=== PATIENT | female | born 1955 | race Caucasian/White ===

== ENCOUNTER 2022-05-02 08:23 | Emergency (ER) | payer MEDICARE, SELFPAY ==
[2022-05-02 08:35] VITALS: BP 129/71; PULSE 61; RESP 20; TEMP 36.4; O2SAT 98; BMI 27.6
--- NOTE | 2022-05-02 08:56 | ED_ITS ---
HPI - General Adult General Time Seen by Provider: 08:57 Date Seen: 05/02/22 Chief complaint: Headache/Migraine Stated complaint: Migraine Time Seen by Provider: 05/02/22 08:25 Source: patient Mode of arrival: ambulatory Limitations: no limitations History of Present Illness HPI narrative: Patient is a very pleasant 66 year white female from [place] presents with her with a migraine headache. She has been long suffering migraine her, has had these since she has been young in her teenage years. No trauma no injury, no thunderclap nature, she has had a headache for few days. Started slowly and insidiously and build up she took some Triptan and it seemed to help, but then she had recurrence. She has had no fever, chills, COVID, influenza symptoms. No nuchal rigidity, no thunderclap nature headache. Headache feels like a normal migraine to her. No neurologic changes, no facial asymmetry. Related Data Allergies Allergy/AdvReac Type Severity Reaction Status Date / Time No Known Drug Allergies Allergy Verified 05/02/22 08:34 Review of Systems Status of ROS: Reports: 6 or more systems reviewed and unremarkable except as noted in History and below [facility] Social History Smoking Status: Never smoker Do you use any of these nicotine containing products: None Second hand tobacco smoke exposure: No How often do you have a drink containing alcohol: 2-3 times a week How many standard drinks containing alcohol do you have on a typical day: 1 or 2 How often do you have six or more drinks on one occasion: Never AUDIT-C Alcohol total score: 3 Non-prescribed substance use: denies use service: No Exam Narrative: Exam Narrative: Objective: Patient appears in no marked distress, noncyanotic, vital signs unremarkable HEENT is shows no facial asymmetry pupils react to light extra extraocular movements intact Neck is supple Neurologic in upper lower extremities unremarkable, moving all extremities, ambulatory Const: Vital Signs, click to edit/add: Vital Signs - 24 hr 05/02/22 08:35 Temperature 97.5 F L Pulse Rate [Pulse Oximeter] 61 Respiratory Rate 20 Blood Pressure [Ri ght Upper Arm] 129/71 Pulse Oximetry 98 Oxygen Delivery Me thod Room Air Course Vital Signs Vital signs: Initial Vital Signs Temperature 97.5 F L 05/02/22 08:35 Temperature Source Temporal Artery Scan 05/02/22 08:35 Pulse Rate 61 05/02/22 08:35 Pulse Rhythm 05/02/22 08:35 Respiratory Rate 20 05/02/22 08:35 Blood Pressure 129/71 05/02/22 08:35 Blood Pressure Mean 90 05/02/22 08:35 Blood Pressure Position Supine 05/02/22 08:35 Pulse Oximetry 98 05/02/22 08:35 Oxygen Delivery Method 05/02/22 08:35 Vital Signs Temperature 97.5 F L 05/02/22 08:35 Pulse Rate 61 05/02/22 08:35 Respiratory Rate 20 05/02/22 08:35 Blood Pressure 129/71 05/02/22 08:35 Pulse Oximetry 98 05/02/22 08:35 Oxygen Delivery Method 05/02/22 08:35 Temperature 97.5 F L 05/02/22 08:35 Pulse Rate 61 05/02/22 08:35 Respiratory Rate 20 05/02/22 08:35 Blood Pressure 129/71 05/02/22 08:35 Pulse Oximetry 98 05/02/22 08:35 Oxygen Delivery Method 05/02/22 08:35 Medical Decision Making MDM Narrative Medical decision making narrative: Patient has a longstanding history of migraines and has a typical migraine for her. She has had these last several days in the past. She typically eats gets better with dark room, sleep. Those methods of not been helping her currently. She has no symptoms of more ominous illness such as subarachnoid hemorrhage given her lack of thunderclap headache and her persistent consistent symptoms with her migraine. I think treating her with IV fluid and migraine cocktail would be appropriate. She has no allergies to medications. Should go home and rest her is here to drive her, and should return if there is concerns or recurrence. Discharge Plan Discharge Clinical Impression: Migraine Patient Disposition: Home w/ Parent or Adult Condition: Improved Instructions: Migraine Headache (ED) Additional Instructions: Rest, sleep, light activity, resume usual medications tomorrow. Do not use any more headache medicine today. Update primary care doctor in the next couple of days, return to ED sooner problems or concerns. Activity Level: Light activity Discharge Diet: Regular Stand Alone Forms: [employer] Info Instructions
[2022-05-02] MEDS: 0.9 % SODIUM CHLORIDE 1000 ml 1,000 ML 6000 ML IV (09:25)
[2022-05-02] MEDS: diphenhydrAMINE 50 MG/ML inj 25 MG IVP (09:28)
[2022-05-02] MEDS: KETOROLAC 30 MG/ML inj 15 MG IVP (09:30)
[2022-05-02] MEDS: METHYLPREDNISOLONE SOD SUCC 40 MG/ML IVP (09:32)
[2022-05-02] MEDS: METOCLOPRAMIDE HCL 10 MG in 0.9 % SODIUM CHLORIDE 100 ml 100 ML 306 MG IV (10:13)
--- NOTE | 2022-05-02 11:04 | ED.NURSE ---
given Morphine 2mg ivp now for pain rated at 6/10 scale. dcd saline lock and asking pharmacy about rizatriptane medication if ok to take that is patient's medication.
== END 2022-05-02 11:17 | disposition home or self-care (01) ==
PROVIDERS: Emergency Provider Family Medicine
DX: G43.909 Migraine, unspecified, not intractable, without status migrainosus (principal)
CPT/HCPCS: 96374; 96375; 99283; 99284; J1200; J1885; J2765; J2920; J7030

== ENCOUNTER 2022-05-20 10:30 | Emergency (ER) | payer MEDICARE, SELFPAY ==
[2022-05-20 10:33] VITALS: BP 146/68; PULSE 63; RESP 20; TEMP 36.2; O2SAT 97; BMI 27.6
--- NOTE | 2022-05-20 10:59 | ED_ITS ---
HPI - Headache General Time Seen by Provider: 10:59 Date Seen: 05/20/22 Chief Complaint: Headache/Migraine Stated Complaint: Migraine Time Seen by Provider: 05/20/22 10:59 Source: patient, family, RN notes reviewed and old records reviewed Mode of arrival: ambulatory Limitations: no limitations History of Present Illness HPI Narrative: Chica is a very pleasant 66-year-old female with a history migraines who comes to the emergency room for migraine. Initially she had presented to urgent care but according to notes sent directly here to the ER as they were unable to do ?narcotics?. This per nursing note. Chica states that approximately 3 days ago she had the onset of a migraine headache typical for her. She states she took a Triptan and the pain went away for a few hours but unfortunately then returned. Since then it has been gradually building and is now associated with photophobia and vomiting. She has not had any diarrhea or fever. She denies any recent head trauma. Typically when she feels a small pain in her head she will drink some coffee and this will abort the headache. Unfortunately this is her 2nd migraine within a number of weeks. She states that this is typical for her with holiday stress. She denies a sore throat or runny nose or recent illness. This was gradual in onset. She states that this time she is presenting in 3 days rather than 6 days as she had previously. Related Data Home Medications Medication Instructions Recorded Confirmed No Known Home Medications 05/20/22 05/20/22 Allergies Allergy/AdvReac Type Severity Reaction Status Date / Time No Known Drug Allergies Allergy Verified 05/02/22 08:34 Review of Systems Status of ROS: Reports: 10 or more systems reviewed and unremarkable except as noted in History and below Const: Denies: fever or chills Eyes: Denies: change in vision or floaters ENMT: Denies: throat pain or neck pain Cardio: Reports: palpitations (Occasionally); Denies: chest pain or shortness of breath with exertion Resp: Denies: shortness of breath or cough GI: Reports: nausea and vomiting; Denies: abdominal pain or diarrhea Musculo: Denies: neck pain Neuro: Reports: headache; Denies: numbness in extremities PFSH PFSH Social History Smoking Status: Never smoker Do you use any of these nicotine containing products: None Second hand tobacco smoke exposure: No How often do you have a drink containing alcohol: 2-3 times a week How many standard drinks containing alcohol do you have on a typical day: 1 or 2 How often do you have six or more drinks on one occasion: Never AUDIT-C Alcohol total score: 3 Non-prescribed substance use: denies use service: No Exam Narrative: Exam Narrative: Chica is a very pleasant 66-year-old female. She is not in any acute distress but clearly uncomfortable and prefers a darkened room. She is currently in room 7 with her who is very loving and supportive. Her EOM is full. Her pupils are equal and do react. Head is atraumatic. Neck is supple. Range of motion is full. Heart with regular rate and rhythm and lungs are clear in all lung joshi. Moving all extremities able to sit up in bed without assistance. 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 If she has continuing pain we will use Toradol. I do see that she had been given morphine previously and this is not typically part of migraine treatment and the plan would be not to use narcotics today. Reevaluation(s) Reevaluation #1: Patient has had complete resolution of headache after Reglan and Benadryl and fluid infusion. Vital Signs Vital signs: Initial Vital Signs Temperature 97.2 F L 05/20/22 10:33 Temperature Source Temporal Artery Scan 05/20/22 10:33 Pulse Rate 63 05/20/22 10:33 Respiratory Rate 20 05/20/22 10:33 Blood Pressure 146/68 H 05/20/22 10:33 Blood Pressure Mean 94 05/20/22 10:33 Blood Pressure Position Sitting 05/20/22 10:33 Pulse Oximetry 97 05/20/22 10:33 Oxygen Delivery Method 05/20/22 10:33 Vital Signs Temperature 97.2 F L 05/20/22 10:33 Pulse Rate 63 05/20/22 10:33 Respiratory Rate 20 05/20/22 10:33 Blood Pressure 146/68 H 05/20/22 10:33 Pulse Oximetry 97 05/20/22 10:33 Oxygen Delivery Method 05/20/22 10:33 Temperature 97.2 F L 05/20/22 10:33 Pulse Rate 63 05/20/22 10:33 Respiratory Rate 20 05/20/22 10:33 Blood Pressure 146/68 H 05/20/22 10:33 Pulse Oximetry 97 05/20/22 10:33 Oxygen Delivery Method 05/20/22 10:33 MDM - Headache MDM Narrative Medical decision making narrative: 1. Migraine-patient is discharged home. She did not receive an NSAID today but she may want to take that when she gets to prevent any further headache. Fortunately, she has had complete resolution of her symptoms. Push fluids and return as needed for worsening pain. 2. Disposition-home with her . Medical Records Attestation: I reviewed the patient's medical records. Discharge Plan Discharge Clinical Impression: Migraine Patient Disposition: Home, Self-Care Condition: Improved Additional Instructions: Recommend rest and pushing fluids today. Return as needed for worsening symptoms. Prescriptions: No Action No Known Home Medications Follow Up/Referrals: Provider,Not a Local [Primary Care Provider] - Stand Alone Forms: [employer] Info Instructions
[2022-05-20] MEDS: diphenhydrAMINE 50 MG/ML inj IVP (11:25)
[2022-05-20] MEDS: 0.9 % SODIUM CHLORIDE 1000 ml 1,000 ML IV (11:25)
[2022-05-20 11:36] VITALS: PULSE 71; O2SAT 98
[2022-05-20] MEDS: METOCLOPRAMIDE HCL 10 MG in 0.9 % SODIUM CHLORIDE 100 ml 100 ML 306 MG IVPB (11:47)
[2022-05-20 12:51] VITALS: BP 146/68; PULSE 63; RESP 20; TEMP 36.2
== END 2022-05-20 12:50 | disposition home or self-care (01) ==
PROVIDERS: Emergency Provider Family Medicine
DX: G43.909 Migraine, unspecified, not intractable, without status migrainosus (principal)
CPT/HCPCS: 94761; 96365; 96375; 99283; 99284; J1200; J2765; J7030

== ENCOUNTER 2022-07-06 08:56 | Emergency (ER) | payer MEDICARE, SELFPAY ==
[2022-07-06 09:10] VITALS: BP 134/71; PULSE 73; RESP 18; TEMP 36; O2SAT 95; BMI 26.0
--- NOTE | 2022-07-06 09:20 | CRLHL7_ITS ---
For Patients: As a result of the Century Cures Act, medical imaging exams and procedure reports are released immediately into your electronic medical record. You may view this report before your referring provider. If you have questions, please contact your health care provider. INDICATION: Migraine, DIZZY TECHNIQUE: CT head without contrast. COMPARISON: None available at this time. FINDINGS: Tiny 3mm hyperdensity within the left globus pallidus which favors mineralization/calcification. Intraparenchymal blood felt less likely. No evidence of extra-axial fluid collection. The jain-white differentiation is normal. No evidence of midline shift. The basilar cisterns are patent. The visualized paranasal sinuses and mastoid air cells demonstrate no acute or significant findings. The visualized orbits are grossly unremarkable. No skull fractures. IMPRESSION: Tiny 3mm hyperdensity within the left globus pallidus which favors mineralization/calcification. Intraparenchymal blood felt less likely. Recommend correlation with prior imaging available to confirm. Short-term interval follow-up could be considered. Otherwise, no evidence of acute intracranial abnormality on this unenhanced CT. Please note that all CT scans at this facility use dose modulation, iterative reconstruction, and/or weight-based dosing when appropriate to reduce radiation dose to as low as reasonably achievable. Dictated by Jorge Esteves MD @ 07/06/2022 10:32:10 AM (Electronically Signed)
--- NOTE | 2022-07-06 09:21 | ED.GENADULT ---
HPI - General Adult General Time Seen by Provider: 09:21 Date Seen: 07/06/22 Chief complaint: Headache/Migraine Stated complaint: Migraine Time Seen by Provider: 07/06/22 08:59 Source: patient Mode of arrival: ambulatory Limitations: no limitations History of Present Illness HPI narrative: Patient is a 66 year white female has a longstanding history of migraine headaches. Has worked with [employer] in the past. She recently within the last few months stop topiramate, she was on that for about 15 years. Since then her headaches have escalated some. She would like to go back and talked and ran again. Has been quite sometime since she has had a imaging study of her head. No new focal neurologic changes, she describes nausea and headache in the typical migraine fashion, photophobia, upset stomach. No thunderclap nature of the headache, no nuchal rigidity. No neurologic complaints other than typical migraine symptoms for her. Arms and legs show no weakness or dysesthesia. Related Data Home Medications Medication Instructions Recorded Confirmed ondansetron 8 mg disintegrating mg 07/06/22 tablet rizatriptan 10 mg disintegrating mg 07/06/22 tablet Allergies Allergy/AdvReac Type Severity Reaction Status Date / Time No Known Drug Allergies Allergy Verified 05/02/22 08:34 Review of Systems Status of ROS: Reports: 6 or more systems reviewed and unremarkable except as noted in History and below PFSH [facility] Social History Smoking Status: Never smoker Do you use any of these nicotine containing products: None Second hand tobacco smoke exposure: No How often do you have a drink containing alcohol: 2-3 times a week How many standard drinks containing alcohol do you have on a typical day: 1 or 2 How often do you have six or more drinks on one occasion: Never AUDIT-C Alcohol total score: 3 Non-prescribed substance use: denies use service: No Exam Narrative: Exam Narrative: Objective: Patient is alert orient x3, vital signs unremarkable she is afebrile She is wearing glasses that are dark Pupils react to light No facial asymmetry mouth clear neck is supple neurologic is grossly nonfocal Const: Vital Signs, click to edit/add: Vital Signs - 24 hr 07/06/22 09:10 Temperature 96.8 F L Pulse Rate [Right Pulse Oximeter] 73 Respiratory Rate 18 Blood Pressure [Ri ght Upper Arm] 134/71 Pulse Oximetry 95 Oxygen Delivery Me thod Room Air Course Vital Signs Vital signs: Initial Vital Signs Temperature 96.8 F L 07/06/22 09:10 Temperature Source Temporal Artery Scan 07/06/22 09:10 Pulse Rate 73 07/06/22 09:10 Respiratory Rate 18 07/06/22 09:10 Blood Pressure 134/71 07/06/22 09:10 Blood Pressure Mean 92 07/06/22 09:10 Blood Pressure Position Sitting 07/06/22 09:10 Pulse Oximetry 95 07/06/22 09:10 Oxygen Delivery Method 07/06/22 09:10 Vital Signs Temperature 96.8 F L 07/06/22 09:10 Pulse Rate 73 07/06/22 09:10 Respiratory Rate 18 07/06/22 09:10 Blood Pressure 134/71 07/06/22 09:10 Pulse Oximetry 95 07/06/22 09:10 Oxygen Delivery Method 07/06/22 09:10 Temperature 96.8 F L 07/06/22 09:10 Pulse Rate 73 07/06/22 09:10 Respiratory Rate 18 07/06/22 09:10 Blood Pressure 134/71 07/06/22 09:10 Pulse Oximetry 95 07/06/22 09:10 Oxygen Delivery Method 07/06/22 09:10 Medical Decision Making MDM Narrative Medical decision making narrative: Patient did well last time here with Benadryl and Reglan and IV fluid, will repeat that cocktail. At this point also I think given she has not had any imaging study for a long time we should do a CT scan of her head unenhanced to make sure there is no changes, especially in light of the fact that she has had some escalation headaches, certainly this could be due to the stopping topiramate. She would go back and see her and Clinic, if her CT is negative will order go home rest light activity. She is on no home meds currently. Perhaps some preventative medication would be appropriate and she will discuss this with Nichol. Return as needed Addendum: The patient's headache is resolved. She typically has excellent results to Reglan and Benadryl and fluid. This presented like her typical migraine. And not like an intercerebral or inner intracranial hemorrhage. She does have calcification the globus pallidus, and she thinks she might have had that before, but is unsure, she will contact around clinic for a follow-up appointment and can have interval repeat imaging as directed by her new neurologist. Her pain is resolved now she is completely better. She can return here as needed. Recommend ran consultation regarding CT follow-up and headache treatment on a prophylactic basis. Discharge Plan Discharge Clinical Impression: Migraine Patient Disposition: Home w/ Parent or Adult Condition: Improved Additional Instructions: Rest, light activity, Tylenol Advil as needed, [facility] Follow up with regular doctor as needed. Return to ED as needed. Recommend recheck and review the CT scan with a neurologist. There was some calcium noted on your CT scan , and he should discuss this with your neurologist. Also discussed these with your neurologist preventative treatment for migraine again. Return to ED as needed. Rest today and adequate fluid intake. Activity Level: Light activity Discharge Diet: Regular Prescriptions: No Action ondansetron 8 mg tablet,disintegrating Label Comments: DISSOLVE ONE TABLET BY MOUTH EVERY 8 HOURS NEEDED FOR NAUSEA. MAX 3 PER DAY rizatriptan 10 mg tablet,disintegrating Label Comments: DISSOLVE 1 TABLET BY MOUTH WITH ONSET OF HEADACHE. MAY REPEAT IN 2 HOURS. MAX OF 2 TABLETS IN 24 HOURS AND 2 DAYS PER WEEK Follow Up/Referrals: Provider,Not a Local [Primary Care Provider] - Stand Alone Forms: [employer] Info Instructions
[2022-07-06] MEDS: diphenhydrAMINE 50 MG/ML inj IVP (09:40)
[2022-07-06] MEDS: METOCLOPRAMIDE HCL 10 MG in 0.9 % SODIUM CHLORIDE 100 ml 100 ML 306 MG IV (09:40)
[2022-07-06] MEDS: 0.9 % SODIUM CHLORIDE 1000 ml 1,000 ML 6000 ML IV (09:40)
== END 2022-07-06 11:04 | disposition home or self-care (01) ==
LOC: ED 09:44
PROVIDERS: Emergency Provider Family Medicine
DX: G43.909 Migraine, unspecified, not intractable, without status migrainosus (principal)
CPT/HCPCS: 70450; 96374; 96375; 99284; J1200; J2765; J7030